=== PATIENT | female | born 1955 | race Caucasian/White ===

== ENCOUNTER 2025-05-31 14:47 | Inpatient (IN) | payer MEDICARE, BC ==
[2025-05-31 15:09] LABS: APPEARANCE,URINE CLOUDY (CLEAR); GLUCOSE,URINE NEGATIVE (NEGATIVE); OCCULT BLOOD,URINE SMALL (NEGATIVE)
[2025-05-31 15:12] LABS: BASOPHILS ABSOLUTE AUTO 0.08 K/uL (0.00-0.10); BASOPHILS PERCENT AUTO 0.3 % (0.1-1.3); EOSINOPHILS PERCENT AUTO 0.0 % (0.0-5.4); IMMATURE GRAN ABSOLUTE AUTO 0.25 K/uL (0.00-0.23); IMMATURE GRAN PERCENT AUTO 0.9 % (0.0-0.7); LYMPHOCYTES ABSOLUTE AUTO 0.86 K/uL (0.8-3.3); LYMPHOCYTES PERCENT AUTO 3.2 % (11.4-47.7); MONOCYTES ABSOLUTE AUTO 1.12 K/uL (0.20-0.90); MONOCYTES PERCENT AUTO 4.1 % (3.3-12.6); NEUTROPHILS ABSOLUTE AUTO 24.84 K/uL (1.0-7.6); NEUTROPHILS PERCENT AUTO 91.5 % (40.0-78.1); PLATELET COUNT,PLT 213 K/uL (130-375); RED BLOOD CELL COUNT 5.09 M/uL (3.77-5.24); WHITE BLOOD CELL COUNT,WBC 27.2 K/uL (3.2-11.0)
[2025-05-31 15:13] LABS: EOSINOPHILS ABSOLUTE AUTO 0.00 K/uL (0.00-0.40)
[2025-05-31 15:19] LABS: SQUAMOUS EPITHELIAL CELLS,UR FEW /HPF
[2025-05-31 15:20] LABS: AMPHETAMINES SCREEN, URINE NEGATIVE (NEGATIVE); METHADONE SCREEN, URINE NEGATIVE (NEGATIVE); METHAMPHETAMINES SCREEN, URINE NEGATIVE (NEGATIVE); OXYCODONE SCREEN,URINE NEGATIVE (NEGATIVE); PROPOXYPHENE SCREEN,URINE NEGATIVE (NEGATIVE); THC SCREEN,URINE 50 NG/ML NEGATIVE (NEGATIVE); UROTHELIAL CELLS,URINE NOT SEEN /HPF
[2025-05-31 15:38] LABS: A/G RATIO 0.8 (1.2-2.2); ALANINE AMINOTRANSFERASE,ALT 9 U/L (12-78); ASPARTATE AMNIOTRANSFERASE,AST 14 U/L (15-37); BILIRUBIN TOTAL 1.5 mg/dL (0.2-1.0); BLOOD UREA NITROGEN,BUN 16 mg/dL (7-18); CARBON DIOXIDE,CO2 24 mmol/L (21-32); CHLORIDE,CL 101 mmol/L (100-108); CREATININE 0.9 mg/dL (0.6-1.0); EST CRCL DRUG DOSING (CG) 59.92 mL/min; ESTIMATED GFR 68 mL/min (>60); GLUCOSE RANDOM 125 mg/dL (74-106); POTASSIUM,K 3.2 mmol/L (3.6-5.2); PROTEIN TOTAL,TP 6.5 g/dL (6.4-8.2); SODIUM,NA 135 mmol/L (140-148)
[2025-05-31 15:42] LABS: CORONAVIRUS COVID-19 NAA NEGATIVE (NEGATIVE); INFLUENZA A NAA NEGATIVE (NEGATIVE); INFLUENZA B NAA NEGATIVE (NEGATIVE); RESPIRATORY SYNCYTIAL VIR NAA NEGATIVE (NEGATIVE)
[2025-05-31 15:45] LABS: CREATINE KINASE,CK 118.0 U/L (26-192); TROPONIN I HIGH SENSITIVITY 13.1 pg/mL (<=60.3)
[2025-05-31] MEDS: Levofloxacin/Dextrose 5%-Water 750 MG in Premix Bag 1 BAG IV ONE (16:31)
[2025-05-31] MEDS ORDERED: Sennosides/Docusate Sodium 50-8.6 MG Tab PO PRN (17:33)
[2025-05-31] MEDS ORDERED: Albuterol 0.083% 2.5 MG/3 ML Neb Soln NEB PRN (17:33)
[2025-05-31] MEDS ORDERED: Magnesium Hydroxide 400 MG/5 ML Susp 30 ML Cup PO PRN (17:33)
[2025-05-31] MEDS ORDERED: Ondansetron 4 MG/2 ML SDV IV PRN (17:33)
[2025-05-31] MEDS ORDERED: Ondansetron 4 MG Tab.DIS PO PRN (17:33)
[2025-05-31] MEDS: Potassium Chloride 20 MEQ Tab.ER PO ONE (17:56)
[2025-05-31] MEDS: Magnesium Sulfate 2 GM/50 mL 2 GM in Premix Bag 1 BAG IV SCH (18:01)
[2025-05-31] MEDS: Lactobacillus Rhamnosus GG (Probiotic) Cap PO SCH (21:43)
[2025-06-01] MEDS: guaiFENesin/Dextromethorphan 100-10 MG/5 ML Soln 10 ML Cup PO PRN (01:02)
[2025-06-01 05:36] LABS: PLATELET COUNT,PLT 172.0 K/uL (130-375); RED BLOOD CELL COUNT 4.3 M/uL (3.77-5.24); WHITE BLOOD CELL COUNT,WBC 20.4 K/uL (3.2-11.0)
[2025-06-01 05:48] LABS: BLOOD UREA NITROGEN,BUN 12.0 mg/dL (7-18); CARBON DIOXIDE,CO2 23.0 mmol/L (21-32); CHLORIDE,CL 108.0 mmol/L (100-108); CREATININE 0.7 mg/dL (0.6-1.0); EST CRCL DRUG DOSING (CG) 77.04 mL/min; ESTIMATED GFR 92.0 mL/min (>60); GLUCOSE RANDOM 104.0 mg/dL (74-106); POTASSIUM,K 3.7 mmol/L (3.6-5.2); SODIUM,NA 139.0 mmol/L (140-148)
[2025-06-01] MEDS ORDERED: Levofloxacin/Dextrose 5%-Water 750 MG in Premix Bag 1 BAG IV SCH (17:00)
== END 2025-06-01 11:05 | disposition home or self-care (01) | DRG 194 ==
LOC: JP.ED 14:47 → JP.MS 16:48
PROVIDERS: ADMIT Internal Medicine; ATTEND Internal Medicine
DX: J18.9 Pneumonia, unspecified organism (principal); N30.00 Acute cystitis without hematuria; H91.90 Unspecified hearing loss, unspecified ear; H54.7 Unspecified visual loss; K21.9 Gastro-esophageal reflux disease without esophagitis; M19.90 Unspecified osteoarthritis, unspecified site; E03.9 Hypothyroidism, unspecified; Z96.659 Presence of unspecified artificial knee joint; E87.6 Hypokalemia; M06.9 Rheumatoid arthritis, unspecified; Z79.899 Other long term (current) drug therapy; Z86.0100 Personal history of colon polyps, unspecified; Z87.81 Personal history of (healed) traumatic fracture; Z90.49 Acquired absence of other specified parts of digestive tract; Z90.710 Acquired absence of both cervix and uterus
CPT/HCPCS: 36415; 71045; 71045-26; 80048; 80053; 80305-QW; 81001; 82550; 83605; 83690; 83735; 84443; 84484; 85025; 85027; 86140; 87040; 87086; 87637; 93005; 99223; 99238; A9270-GY; J1956; J3475; J7030

== ENCOUNTER 2025-06-10 14:42 | Emergency (ER) | payer MEDICARE, BC | END 2025-06-10 17:27 | disposition home or self-care (01) | LOC: JP.ED 14:42 | DX: M54.2 Cervicalgia (principal); E03.9 Hypothyroidism, unspecified; Z90.710 Acquired absence of both cervix and uterus; Z79.890 Hormone replacement therapy; Z79.899 Other long term (current) drug therapy; Z79.01 Long term (current) use of anticoagulants | CPT/HCPCS: 99283 ==